=== PATIENT | male | born 1995 | race African-American/Black ===

== ENCOUNTER → 2018-01-13 | Emergency (ER) ==
[~2018-01-13] MED LIST: CEPHALEXIN500 M1 PO
== END ==
LOC: COL.ER 22:25
DX: Z72.9 Problem related to lifestyle, unspecified (principal)

== ENCOUNTER 2018-01-14 13:33 | Emergency (ER) | payer OTHER ==
[~2018-01-14] VITALS: Ht 180.3 cm; Wt 77.3 kg
[2018-01-14 13:36] VITALS: BP 143/63; PULSE 73; TEMP 98
[2018-01-14] MEDS ORDERED: CEPHALEXIN500 M1 PO (14:31)
== END 2018-01-14 14:53 | disposition home or self-care (01) ==
LOC: COL.ER 13:33
DX: L03.012 Cellulitis of left finger (principal); F12.90 Cannabis use, unspecified, uncomplicated